=== PATIENT | female | born 1960 | race Caucasian/White ===

== ENCOUNTER 2020-04-25 10:38 | Inpatient (IN) | payer MEDICARE, MEDICAID ==
[~2020-04-25] VITALS: Ht 165.1 cm; Wt 94.2 kg
[2020-04-25] MEDS ORDERED: OLAN10TA9 PO (12:15)
[2020-04-25] MEDS ORDERED: POTA20TA4 PO (12:15)
[2020-04-25] MEDS ORDERED: TRAZ-120 PO (12:15)
[2020-04-25] MEDS ORDERED: HYDR-2155 PO (12:15)
[2020-04-25] MEDS ORDERED: ISOS30TA4 PO (12:15)
[2020-04-25] MEDS ORDERED: WARF-31 PO (12:15)
[2020-04-25] MEDS ORDERED: PANT40TA5 PO (12:15)
[2020-04-25] MEDS ORDERED: LISI-334 PO (12:15)
[2020-04-25] MEDS ORDERED: FLUO40CA2 PO (12:15)
[2020-04-25] MEDS ORDERED: ONDA-84 PO (12:15)
[2020-04-25] MEDS ORDERED: DIVA-53 PO (12:15)
[2020-04-25] MEDS ORDERED: MIRT30TA3 PO (12:15)
[2020-04-25] MEDS ORDERED: ATOR10TA60 PO (12:15)
[2020-04-25] MEDS ORDERED: FURO40TA4 PO (12:15)
[2020-04-25] MEDS ORDERED: BENZ1TAB5 PO (12:15)
[2020-04-25] MEDS ORDERED: MAGNESIUM HYDROXIDE 2,400 MG/30 ML ORAL.SUSP. PO PRN (14:30)
[2020-04-25] MEDS ORDERED: MAG HYDROX/AL HYDROX/SIMETH 30 ML ORAL.SUSP PO PRN (14:30)
[2020-04-25] MEDS ORDERED: ACETAMINOPHEN 325 MG TABLET PO PRN (14:30)
[2020-04-25] MEDS ORDERED: METHYL SALICYLATE/MENTHOL TOPICAL OINTMENT 57GM TUBE. TP PRN (14:30)
[2020-04-25 14:33] VITALS: BP 123/76
--- NOTE | 2020-04-25 14:33 | NUR ---
Admission Note with Justification for Admission to [facility] Patient admitted to [facility] for protective oversight for emergency stabilization of acute psychiatric crisis. Pt admitted from: Hospital pmc Mode of arrival: EMS Accompanied By: EMS Precipitating behaviors that initiated intake and admission: Hearing voices telling her to hurt herself or runaway, decrease appetite, thoughts of hurting herself. irritable, agitated. Description of failure of out patient attempts at stabilization in previous setting list behavior and medication trials: evaluated by Yovana Behaviors and assessment findings upon admission: Plan: Admit for protective oversight for adjustment and stabilization of medications, behaviors and mood. Intense treatment regimen including groups, medication adjustments, therapy, consistent regimen for ADL's, self care, and sleep hygiene. Daily monitoring by Inpatient staff, Psychiatry, and Medical Physician. Addendum: 04/25/20 at 1440 by AGA BARKLEY RN Behaviors and assessment findings upon admission: Patient doesn't have any current SI thoughts. And is calm and cooperative.
[2020-04-25] MEDS ORDERED: ONDANSETRON ODT 4 MG TAB.RAPDIS PO PRN (15:45)
[2020-04-25] MEDS ORDERED: WARFARIN 5 MG TABLET. PO SCH (16:00)
[2020-04-25 16:09] LABS: BASO % 0 % (0-3); EOS # 0.1 x10^3/uL (0.0-0.7); EOS % 2 % (0-3); HEMATOCRIT 42.9 % (36.0-47.0); HEMOGLOBIN 14.4 g/dL (12.0-15.5); LYMPH # 1.1 x10^3/uL (1.0-4.8); LYMPH % 22 % (24-48); MEAN CORPUSCULAR HEMOGLOBIN 29 pg (25-35); MEAN CORPUSCULAR HGB CONC 34 g/dL (31-37); MEAN CORPUSCULAR VOLUME 86 fL (79-100); MONO # 0.4 x10^3/uL (0.0-1.1); MONO % 8 % (0-9); NEUT # 3.3 x10^3uL (1.8-7.7); NEUT % 68 % (31-73); PLATELET COUNT 145 x10^3/uL (140-400); RED BLOOD COUNT 5.01 x10^6/uL (3.50-5.40); RED CELL DISTRIBUTION WIDTH 14.9 % (11.5-14.5); WHITE BLOOD COUNT 4.9 x10^3/uL (4.0-11.0)
[2020-04-25 16:23] LABS: ALBUMIN 3.4 g/dL (3.4-5.0); ALBUMIN/GLOBULIN RATIO 0.9 (1.0-1.7); CALCIUM 8.4 mg/dL (8.5-10.1); CREATININE 0.8 mg/dL (0.6-1.0); GFR 73.4; POTASSIUM 3.7 mmol/L (3.5-5.1); TOTAL BILIRUBIN 0.3 mg/dL (0.2-1.0); TOTAL PROTEIN 7.1 g/dL (6.4-8.2)
[2020-04-25] MEDS: PANTOPRAZOLE 40 MG TABLET. PO SCH (17:22)
--- NOTE | 2020-04-25 19:34 | HP ---
ADMIT DATE: 04/25/2020 PSYCHIATRIC ADMISSION HISTORY AND EVALUATION This note covers elements not covered in my initial note of 04/25/2020. IDENTIFYING DATA: The patient is a 59-year-old female referred to us from [facility] where she was admitted from home on account of having an acute exacerbation of her schizoaffective disorder, bipolar type. Reportedly, she was hearing voices telling her to hurt herself or run away. She had decreased appetite, thoughts of suicide, irritable, agitated. She had failed outpatient psychiatric interventions at [facility] by Dr. Jae Mora. The patient's behaviors were deemed dangerous and failed outpatient psychiatric interventions resulting in this referral. CHIEF COMPLAINT: "I did best on Seroquel. I'm taking Depakote now." HISTORY OF PRESENT ILLNESS: The patient has a history of schizoaffective disorder, bipolar type versus bipolar disorder, mixed with psychotic features. She has been increasingly labile in her mood recently, anxious, restless, paranoid with suicidal ideation. No active homicidal ideation. PAST PSYCHIATRIC HISTORY: As above. MEDICAL HISTORY: Positive for status post CVA in 03/2019, hypertension, hyperlipidemia, COPD, atrial fibrillation, sick sinus syndrome, coronary artery disease, cardiac stent, pacemaker in place, renal disease, AL in 1996, history of recent fall 04/21/2020. DIET: Regular, cardiac. Ambulates independently, uses cane. UA is negative. CODE STATUS: Full code. No ventilator. CURRENT PSYCHOTROPICS: Cogentin 1 mg b.i.d., Depakote 500 mg b.i.d., trazodone 50 mg at bedtime, Prozac 40 mg a day, Remeron 30 mg at bedtime, Zyprexa 15 mg at bedtime. FAMILY HISTORY: Noncontributory. SOCIAL HISTORY: The patient lives at home with her . No alcohol or drug abuse, physical, sexual or elder abuse history is noted. Not known to be a perpetrator. REACTION TO HOSPITALIZATION: The patient accepting of it. REVIEW OF SYSTEMS: No CV, , pulmonary, eye system symptoms on review. MENTAL STATUS EXAMINATION: The patient is oriented to herself and situation. Speech is coherent, abstraction fair, computation impaired, language function intact, attention span short. Mood and affect somewhat labile. No active suicidal or homicidal ideation. Attention span short. Language function intact. Insight fair. IMPRESSION: Schizoaffective disorder, bipolar type, mixed with psychotic features; anxiety disorder, unspecified. Rest as above. PLAN: Admit to Geropsychiatry Unit at [facility]. I will see the patient daily individually from a psychiatric standpoint, medical followup per Dr. Tucker. Continue the patient on her current psychotropics, observe baseline, get past records from [facility], then make adjustments as clinically indicated. ESTIMATED LENGTH OF STAY: 10-12 days. DISPOSITION: Plans probably back home with outpatient treatment at [facility]. MAN Pito BRYANT MD DR: ALON/alfredo JOB#: [id number] / [id number]
[2020-04-25] MEDS ORDERED: OLANZapine 7.5 MG TABLET PO SCH (21:00)
[2020-04-25] MEDS: MIRTAZAPINE 30 MG TABLET PO SCH (21:00)
[2020-04-25] MEDS: traZODone 50 MG TABLET. PO SCH (21:00)
[2020-04-25] MEDS: DIVALPROEX SODIUM 250 MG TABLET.DR. PO SCH (21:00)
[2020-04-25] MEDS: ATORVASTATIN CALCIUM 10 MG TABLET. PO SCH (21:01)
[2020-04-25] MEDS: BENZTROPINE MESYLATE 1 MG TABLET PO SCH (21:01)
--- NOTE | 2020-04-25 22:42 | PDOC ---
Exam Note: Braxton Note: Please also refer to the separate dictated note~for this date of service dictated separately.~Patient seen individually. Discussed the patient with Nursing staff reviewed the chart.~Reviewed interim history and current functioning. Reviewed vital signs,~Labs/ Radiology~and current medications noted below. Continue current treatment with the changes noted in the dictated addendum note Assessment: Vital Signs/I&O: Vital Signs Date Time Temp Pulse Resp B/P (MAP) Pulse Ox O2 Delivery O2 Flow Rate FiO2 04/25/20 14:33 97.9 74 18 123/76 (92) 95 Room Air Labs: Laboratory Tests Test 04/25/20 15:53 04/25/20 18:42 White Blood Count 4.9 x10^3/uL (4.0-11.0) Red Blood Count 5.01 x10^6/uL (3.50-5.40) Hemoglobin 14.4 g/dL (12.0-15.5) Hematocrit 42.9 % (36.0-47.0) Mean Corpuscular Volume 86 fL (79-100) Mean Corpuscular Hemoglobin 29 pg (25-35) Mean Corpuscular Hemoglobin Concent 34 g/dL (31-37) Red Cell Distribution Width 14.9 % (11.5-14.5) H Platelet Count 145 x10^3/uL (140-400) Neutrophils (%) (Auto) 68 % (31-73) Lymphocytes (%) (Auto) 22 % (24-48) L Monocytes (%) (Auto) 8 % (0-9) Eosinophils (%) (Auto) 2 % (0-3) Basophils (%) (Auto) 0 % (0-3) Neutrophils # (Auto) 3.3 x10^3uL (1.8-7.7) Lymphocytes # (Auto) 1.1 x10^3/uL (1.0-4.8) Monocytes # (Auto) 0.4 x10^3/uL (0.0-1.1) Eosinophils # (Auto) 0.1 x10^3/uL (0.0-0.7) Basophils # (Auto) 0.0 x10^3/uL (0.0-0.2) Sodium Level 143 mmol/L (136-145) Potassium Level 3.7 mmol/L (3.5-5.1) Chloride Level 107 mmol/L (98-107) Carbon Dioxide Level 29 mmol/L (21-32) Anion Gap 7 (6-14) Blood Urea Nitrogen 13 mg/dL (7-20) Creatinine 0.8 mg/dL (0.6-1.0) Estimated GFR (Cockcroft-Gault) 73.4 BUN/Creatinine Ratio 16 (6-20) Glucose Level 123 mg/dL (70-99) H Calcium Level 8.4 mg/dL (8.5-10.1) L Total Bilirubin 0.3 mg/dL (0.2-1.0) Aspartate Amino Transferase (AST) 15 U/L (15-37) Alanine Aminotransferase (ALT) 20 U/L (14-59) Alkaline Phosphatase 77 U/L (46-116) Total Protein 7.1 g/dL (6.4-8.2) Albumin 3.4 g/dL (3.4-5.0) Albumin/Globulin Ratio 0.9 (1.0-1.7) L Prothrombin Time 25.2 SEC (9.4-11.4) H Prothrombin Time INR 2.4 (0.9-1.1) H Current Medications: Meds: Current Medications Medications (Trade) Dose Ordered Sig/Orville Route PRN Reason Start Time Stop Time Status Last Admin Dose Admin Atorvastatin Calcium (Lipitor) 10 mg QHS PO 04/25/20 21:00 04/25/20 21:01 Pantoprazole Sodium (Protonix) 40 mg BIDBFRMEAL PO 04/25/20 16:30 04/25/20 17:22 Warfarin Sodium (Coumadin) 5 mg DAILY16 PO 04/25/20 16:00 04/25/20 17:23 Benztropine Mesylate (Cogentin) 1 mg BID PO 04/25/20 21:00 04/25/20 21:01 Mirtazapine (Remeron) 30 mg QHS PO 04/25/20 21:00 04/25/20 21:00 Olanzapine (ZyPREXA) 15 mg QHS PO 04/25/20 21:00 04/25/20 21:01 Trazodone HCl (Desyrel) 50 mg QHS PO 04/25/20 21:00 04/25/20 21:00 Divalproex Sodium (Depakote) 500 mg BID PO 04/25/20 21:00 04/25/20 21:00 I have reviewed the current psychotropics carefully including drug interactions. Risk benefit ratio favors no change other than as noted in my dictated progress note. Diagnosis: Problems: (1) Schizoaffective disorder, bipolar type (2) Bipolar disorder with psychotic features (3) Anxiety disorder, unspecified CONSTANCE BRYANT MD Apr 25, 2020 22:42
[2020-04-25] MEDS: HYDROcodone/APAP 5/325MG 1 TAB TABLET PO PRN (23:14)
--- NOTE | 2020-04-26 00:14 | NUR ---
Nursing Note Pt pleasant calm and cooperative. Complains that she cannot sleep, lortab given with no response.
[2020-04-26 06:34] VITALS: BP 108/66
[2020-04-26] MEDS: LISINOPRIL 20 MG TABLET PO SCH (09:00)
[2020-04-26] MEDS: DIVALPROEX SODIUM 250 MG TABLET.DR. PO SCH ×2 (10:01→20:54)
[2020-04-26] MEDS: POTASSIUM CHLORIDE 20 MEQ TABLET.ER. PO SCH (10:01)
[2020-04-26] MEDS: BENZTROPINE MESYLATE 1 MG TABLET PO SCH ×2 (10:01→20:54)
[2020-04-26] MEDS: ISOSORBIDE MONONITRATE ER 30 MG TAB.ER.24H PO SCH (10:01)
[2020-04-26] MEDS: PANTOPRAZOLE 40 MG TABLET. PO SCH ×2 (10:01→17:08)
[2020-04-26] MEDS: FLUoxetine HCL 20 MG CAPSULE PO SCH (10:02)
[2020-04-26] MEDS: FUROSEMIDE 40 MG TABLET PO SCH (10:02)
[2020-04-26] MEDS: HYDROcodone/APAP 5/325MG 1 TAB TABLET PO PRN (11:11)
[2020-04-26 13:12] LABS: VAL ACID 73 mcg/mL (50-100)
[2020-04-26 13:21] LABS: THYROID STIM HORMONE (TSH) 1.992 uIU/mL (0.358-3.740)
--- NOTE | 2020-04-26 14:02 | NUR ---
Pharmacy Warfarin Dosing Note S:Pharmacy consulted to assist with anticoagulation therapy started with target INR: 2 -3 O:HEIDI MCCANN is a 59 year old F with Atrial Fibrillation LABS: Last INR: 3 Last HGB: 14.4 Last HCT: 42.9 Last PLT: 145 Last dose of 5 mg given on 04/25/20 at 1600 Previous Regimen: Vitamin K given: Drug Interaction Changes: Ongoing Drug Interactions: A:INR Within desired Range. Target Range for this patient is: 2 -3 P: Warfarin dose: Hold Today at 1600 Bridge Therapy: None Next INR due 04/27/20 @ 0600 Pharmacy anticoagulation service will continue to follow. STUART AGUDELO [facility], 04/26/20 1449
--- NOTE | 2020-04-26 15:01 | NUR ---
Nursing note: Pt has been calm and cooperative this shift. She c/o pain in her back 07/15. PRN lortab administered at that time. She denies SI, as well as seeing and hearing things, although she did mention she had some hallucinations last night. She is currently sitting quietly in the day room. Will continue to monitor.
--- NOTE | 2020-04-26 16:06 | NUR ---
JESSICA contacted pt , Abhijit, to get some background information. Abhijit reports that he is currently driving through p[place] hour traffic in [place] and would prefer not to talk on the phone. JESSICA will try back at a later time.
--- NOTE | 2020-04-26 16:11 | NUR ---
Call placed to [employer], spoke to Evelia Bourgeois's [employer] member ID number is [id number]. Pending authorization number is [id number]. A [employer] utilization management telemarketing sales representative will contact JESSICA Calderon to complete the remainder of the live review. Call reference number is [id number].
[2020-04-26 16:15] VITALS: BP 114/77
--- NOTE | 2020-04-26 16:31 | NUR ---
JESSICA received a call from Oneyda, commissary representative from [facility] who wanted to complete pt review. JESSICA gave clinicals as to why pt was admitted, updates on pt medications and went over the H/P completed by Dr. Mead. Pt is authorized from her day of admit 04/25/2020 until 04/29/2020. JESSICA is to contact HANS David at to complete the concurrent review and with the authorization number of [id number].
[2020-04-26] MEDS ORDERED: CHOLECALCIFEROL (VITAMIN D3) 50,000 UNIT CAPSULE PO SCH (18:00)
[2020-04-26 19:07] LABS: THYROXINE 7.5 ug/dL (4.5-12.0)
[2020-04-26] MEDS ORDERED: traZODone 50 MG TABLET. PO PRN (19:45)
--- NOTE | 2020-04-26 20:39 | CONS ---
DATE OF CONSULTATION: 04/26/2020 REASON FOR CONSULTATION: Medical management. HISTORY OF PRESENT ILLNESS: The patient is a 59-year-old female patient who was referred from [facility] where she was admitted from home on account of an acute exacerbation of her schizoaffective disorder, bipolar type. She reportedly has been hearing voices telling her to hurt herself or runaway. She has also had decreased appetite, thoughts of suicide, irritable, agitated. She apparently has failed outpatient psychiatric intervention at [facility] and therefore, she was referred to this unit for inpatient psychiatric stabilization. When I saw her this afternoon, she basically denied any chest pain or shortness of breath or any other complaint except the fact that she is hearing voices that are urging her to hurt herself, not anybody else. PAST MEDICAL HISTORY: Significant for cerebrovascular accident, hypertension, hyperlipidemia, chronic obstructive pulmonary disease, atrial fibrillation, sick sinus syndrome, coronary artery disease, cardiac stent, pacemaker in place, chronic kidney disease and myocardial infarction in 1996, history of recent fall on 04/21/2020. PAST SURGICAL HISTORY: Significant for aortic valve replacement with prosthetic valve. She also has coronary artery disease, status post stent deployment and permanent pacemaker as well as total abdominal hysterectomy. ALLERGIES: SHE IS ALLERGIC TO IODINATED CONTRAST MEDIA, PENICILLIN, SULFA, CODEINE, DIPHENHYDRAMINE, AND LATEX. MEDICATIONS: She is currently on risperidone 1 mg at bedtime, fluoxetine 40 mg once a day, potassium chloride 20 mEq once a day, lisinopril 20 mg once a day, isosorbide mononitrate 30 mg daily, furosemide 40 mg daily, divalproex sodium 500 mg twice a day, trazodone 50 mg at bedtime, mirtazapine 30 mg at bedtime, benztropine 1 mg p.o. b.i.d., atorvastatin 10 mg at bedtime. She is on Coumadin as per pharmacy adjustment, Protonix 40 mg once a day, ondansetron 4 mg every 6 hours, hydrocodone/APAP 5/325 one tablet every 6 hours, milk of magnesia 30 mL p.o. daily p.r.n. for constipation, Mylanta plus 15 mL after meals and as needed and acetaminophen 650 mg every 6 hours. FAMILY HISTORY: Noncontributory. SOCIAL HISTORY: She is and lives at home with her . She does not smoke, drink alcohol or use any recreational drugs. She apparently used to work for [employer]. PHYSICAL EXAMINATION: GENERAL: When I saw her this afternoon, she looked well and was clearly in no apparent respiratory distress. No pallor, jaundice, cyanosis or thyromegaly. No jugular venous distension. No lower limb edema. VITAL SIGNS: Her heart rate was 72, blood pressure 114/77, temperature was 97.6, respiratory rate was 16, and oxygen saturation was 93. HEAD, EYES, EARS, NOSE AND THROAT: Showed normocephalic, atraumatic. NECK: Supple. CARDIAC: Normal first and second heart sounds. No gallop or murmur. CHEST: Clear to auscultation. No crepitation or rhonchi. ABDOMEN: Distended, soft, nontender. NEUROLOGIC: She is definitely awake, alert, responding appropriately. All cranial nerves intact. EXTREMITIES: She moves extremities without difficulty. She ambulates with a walker. LABORATORY DATA: Showed a white cell count 4900, hemoglobin 14, hematocrit 42, MCV 86 and platelet count of 145,000. Serum sodium was 143, potassium 3.7, chloride 107, bicarbonate 29, anion gap of 7, BUN 13, creatinine 0.8, estimated GFR was 73 mL per minute. Her glucose was 153, calcium was 8.4. Serum iron, TIBC and iron saturation are all consistent with iron deficiency anemia. Her total bilirubin, AST, ALT, alkaline phosphatase were normal. Total protein 7.1, albumin 3.4. Her serum triglycerides were 221, total cholesterol 161, LDL was 78, VLDL was 44, and HDL was 39, the ratio was 4. Vitamin B12 was 579 pg/mL, 25-hydroxyvitamin D was low at 29 and TSH was 1.992. Her prothrombin time was 13.9 and INR of 3, which is well within therapeutic range for prosthetic aortic valve. Her valproic acid also is 73 mcg/mL, which is well within therapeutic range. Her treponema pallidum antibodies nonreactive. IMPRESSION: In summary, this is a 59-year-old female patient who was admitted here on account of acute exacerbation of her schizophrenic disorder, bipolar type. She apparently has been hearing voices telling her to hurt herself or runaway with poor appetite and suicidal thoughts. She is also relative been markedly agitated and was admitted for inpatient psychiatric stabilization. Medically, she all in all seems to be stable. Her vital signs are normal. Her lab work is well within therapeutic range. The only abnormality is vitamin D is low. Her PT/INR is within therapeutic range. PLAN: My plan is to replenish her vitamin D with ergocalciferol 50,000 units once a week. Otherwise, she seemed to be medically stable. Thank you, Dr. Mead for allowing me to participate in the care of this patient. EMILY BOOKER MD DR: FAITH/alfredo JOB#: [id number] / [id number]
[2020-04-26] MEDS: MIRTAZAPINE 30 MG TABLET PO SCH (20:54)
[2020-04-26] MEDS: traZODone 50 MG TABLET. PO SCH (20:55)
[2020-04-26] MEDS: risperiDONE 1 MG TABLET. PO SCH (20:55)
[2020-04-26] MEDS: ATORVASTATIN CALCIUM 10 MG TABLET. PO SCH (20:55)
--- NOTE | 2020-04-26 21:00 | NUR ---
Nursing Note Pt pleasant calm and cooperative. Denies complaints states she is feeling ok glad to not be wearing a mask.
--- NOTE | 2020-04-26 22:41 | PDOC ---
Exam Note: Braxton Note: Please also refer to the separate dictated note~for this date of service dictated separately.~Patient seen individually. Discussed the patient with Nursing staff reviewed the chart.~Reviewed interim history and current functioning. Reviewed vital signs,~Labs/ Radiology~and current medications noted below. Continue current treatment with the changes noted in the dictated addendum note Assessment: Vital Signs/I&O: Vital Signs Date Time Temp Pulse Resp B/P (MAP) Pulse Ox O2 Delivery O2 Flow Rate FiO2 04/26/20 16:15 97.6 72 16 114/77 (89) 93 04/25/20 14:33 Room Air I & O 04/25/20 04/25/20 04/26/20 15:00 23:00 07:00 Intake Total 360 ml Balance 360 ml Labs: Laboratory Tests Test 04/26/20 12:38 Prothrombin Time 30.9 SEC (9.4-11.4) H Prothrombin Time INR 3.0 (0.9-1.1) H Valproic Acid Level 73 mcg/mL (50-100) Valproic Acid Last Dose Date 04/26/20 Valproic Acid Last Dose Time 1000 Current Medications: Meds: Current Medications Medications (Trade) Dose Ordered Sig/Orville Route PRN Reason Start Time Stop Time Status Last Admin Dose Admin Furosemide (Lasix) 40 mg DAILY PO 04/26/20 09:00 04/26/20 10:02 Isosorbide Mononitrate (Imdur) 30 mg DAILY PO 04/26/20 09:00 04/26/20 10:01 Potassium Chloride (Klor-Con) 20 meq DAILY PO 04/26/20 09:00 04/26/20 10:01 Fluoxetine HCl (PROzac) 40 mg DAILY PO 04/26/20 09:00 04/26/20 10:02 Risperidone (RisperDAL) 1 mg QHS PO 04/26/20 21:00 04/26/20 20:55 Vitamin D (Vitamin D3) 50,000 unit WEEKLY PO 04/26/20 18:00 04/26/20 20:54 I have reviewed the current psychotropics carefully including drug interactions. Risk benefit ratio favors no change other than as noted in my dictated progress note. Diagnosis: Problems: (1) Schizoaffective disorder, bipolar type (2) Anxiety disorder, unspecified (3) Bipolar disorder with psychotic features CONSTANCE BRYANT MD Apr 26, 2020 22:41
[2020-04-27 01:07] LABS: HEMOGLOBIN A1C 5.2 % (4.8-5.6)
[2020-04-27 06:27] VITALS: BP 141/85
[2020-04-27 07:34] LABS: ALBUMIN/GLOBULIN RATIO 0.9 (1.0-1.7); BASO % 0 % (0-3); CALCIUM 8.5 mg/dL (8.5-10.1); CREATININE 0.9 mg/dL (0.6-1.0); EOS # 0.1 x10^3/uL (0.0-0.7); EOS % 3 % (0-3); GFR 64.1; HEMATOCRIT 40.4 % (36.0-47.0); HEMOGLOBIN 13.6 g/dL (12.0-15.5); LYMPH # 1.4 x10^3/uL (1.0-4.8); LYMPH % 28 % (24-48); MEAN CORPUSCULAR HEMOGLOBIN 29 pg (25-35); MEAN CORPUSCULAR HGB CONC 34 g/dL (31-37); MEAN CORPUSCULAR VOLUME 86 fL (79-100); MONO # 0.4 x10^3/uL (0.0-1.1); MONO % 9 % (0-9); NEUT # 2.9 x10^3uL (1.8-7.7); NEUT % 60 % (31-73); PLATELET COUNT 134 x10^3/uL (140-400); POTASSIUM 3.8 mmol/L (3.5-5.1); RED BLOOD COUNT 4.71 x10^6/uL (3.50-5.40); RED CELL DISTRIBUTION WIDTH 14.5 % (11.5-14.5); TOTAL BILIRUBIN 0.3 mg/dL (0.2-1.0); TOTAL PROTEIN 6.3 g/dL (6.4-8.2); WHITE BLOOD COUNT 4.8 x10^3/uL (4.0-11.0)
[2020-04-27] MEDS: ISOSORBIDE MONONITRATE ER 30 MG TAB.ER.24H PO SCH (08:50)
[2020-04-27] MEDS: DIVALPROEX SODIUM 250 MG TABLET.DR. PO SCH ×2 (08:51→20:08)
[2020-04-27] MEDS: LISINOPRIL 20 MG TABLET PO SCH (08:51)
[2020-04-27] MEDS: POTASSIUM CHLORIDE 20 MEQ TABLET.ER. PO SCH (08:51)
[2020-04-27] MEDS: BENZTROPINE MESYLATE 1 MG TABLET PO SCH ×2 (08:51→20:08)
[2020-04-27] MEDS: PANTOPRAZOLE 40 MG TABLET. PO SCH ×2 (08:52→17:16)
[2020-04-27] MEDS: FLUoxetine HCL 20 MG CAPSULE PO SCH (08:52)
[2020-04-27] MEDS: FUROSEMIDE 40 MG TABLET PO SCH (08:52)
[2020-04-27] MEDS: HYDROcodone/APAP 5/325MG 1 TAB TABLET PO PRN (09:00)
--- NOTE | 2020-04-27 09:03 | NUR ---
Patient reports 9/10 pain during assessment. States her pain is in her back. PRN Lortab provided per order for pain. Will continue to monitor.
--- NOTE | 2020-04-27 09:59 | PDOC ---
Exam Note: Braxton Note: This note is a late entry for 04/26/2020 covers elements not covered in my initial note. Subjective: The patient was seen individually in the morning of 04/26/2020 with treatment team meeting with Carlos (social service staff), [facility] Activity Therapy staff, and Niurka IBARRA. I met with the patient in the evening along with Niurka RN, she slept 5-1/2 hours previous night. The patient is attending groups, is failure oriented. Denies suicidal ideations. Reportedly was having auditory hallucinations last evening. We will check valproic acid level. She remains quite psychotic. We have also received outpatient psychiatric records from [facility], Dr. Mora. Review of Systems: Ambulation impaired in wheelchair. No CV, , pulmonary, eye, ENT system symptoms on review. Mental Status Exam: Reasonably oriented. Speech coherent. Abstraction fair. Computation impaired. Language function intact. Attention span short. Mood and affect somewhat anxious, labile, paranoid. Laboratory Data: Reviewed. Impression: Schizoaffective disorder bipolar type, mixed with psychotic features versus bipolar disorder mixed with psychotic features. Rest unchanged. Plan: The patient remains quite psychotic. We will change the Zyprexa 15 mg h.s. to Risperdal 1 mg h.s. Check valproic acid level. Continue Cogentin for now, trazodone, Prozac 40 mg a day, Remeron 30 mg h.s. Assessment: Vital Signs/I&O: Vital Signs Date Time Temp Pulse Resp B/P (MAP) Pulse Ox O2 Delivery O2 Flow Rate FiO2 04/27/20 08:51 63 141/85 04/27/20 06:27 98.9 20 94 04/25/20 14:33 Room Air I & O 04/26/20 04/26/20 04/27/20 15:00 23:00 07:00 Intake Total 360 ml 360 ml Balance 360 ml 360 ml Labs: Laboratory Tests Test 04/26/20 12:38 04/27/20 06:47 Prothrombin Time 30.9 SEC (9.4-11.4) H 27.1 SEC (9.4-11.4) H Prothrombin Time INR 3.0 (0.9-1.1) H 2.6 (0.9-1.1) H Valproic Acid Level 73 mcg/mL (50-100) Valproic Acid Last Dose Date 04/26/20 Valproic Acid Last Dose Time 1000 White Blood Count 4.8 x10^3/uL (4.0-11.0) Red Blood Count 4.71 x10^6/uL (3.50-5.40) Hemoglobin 13.6 g/dL (12.0-15.5) Hematocrit 40.4 % (36.0-47.0) Mean Corpuscular Volume 86 fL (79-100) Mean Corpuscular Hemoglobin 29 pg (25-35) Mean Corpuscular Hemoglobin Concent 34 g/dL (31-37) Red Cell Distribution Width 14.5 % (11.5-14.5) Platelet Count 134 x10^3/uL (140-400) L Neutrophils (%) (Auto) 60 % (31-73) Lymphocytes (%) (Auto) 28 % (24-48) Monocytes (%) (Auto) 9 % (0-9) Eosinophils (%) (Auto) 3 % (0-3) Basophils (%) (Auto) 0 % (0-3) Neutrophils # (Auto) 2.9 x10^3uL (1.8-7.7) Lymphocytes # (Auto) 1.4 x10^3/uL (1.0-4.8) Monocytes # (Auto) 0.4 x10^3/uL (0.0-1.1) Eosinophils # (Auto) 0.1 x10^3/uL (0.0-0.7) Basophils # (Auto) 0.0 x10^3/uL (0.0-0.2) Sodium Level 143 mmol/L (136-145) Potassium Level 3.8 mmol/L (3.5-5.1) Chloride Level 106 mmol/L (98-107) Carbon Dioxide Level 32 mmol/L (21-32) Anion Gap 5 (6-14) L Blood Urea Nitrogen 16 mg/dL (7-20) Creatinine 0.9 mg/dL (0.6-1.0) Estimated GFR (Cockcroft-Gault) 64.1 BUN/Creatinine Ratio 18 (6-20) Glucose Level 108 mg/dL (70-99) H Calcium Level 8.5 mg/dL (8.5-10.1) Total Bilirubin 0.3 mg/dL (0.2-1.0) Aspartate Amino Transferase (AST) 15 U/L (15-37) Alanine Aminotransferase (ALT) 19 U/L (14-59) Alkaline Phosphatase 64 U/L (46-116) Total Protein 6.3 g/dL (6.4-8.2) L Albumin 3.0 g/dL (3.4-5.0) L Albumin/Globulin Ratio 0.9 (1.0-1.7) L Current Medications: Meds: Current Medications Medications (Trade) Dose Ordered Sig/Orville Route PRN Reason Start Time Stop Time Status Last Admin Dose Admin Risperidone (RisperDAL) 1 mg QHS PO 04/26/20 21:00 04/26/20 20:55 Vitamin D (Vitamin D3) 50,000 unit WEEKLY PO 04/26/20 18:00 04/26/20 20:54 I have reviewed the current psychotropics carefully including drug interactions. Risk benefit ratio favors no change other than as noted in my dictated progress note. Diagnosis: Problems: (1) Schizoaffective disorder, bipolar type (2) Anxiety disorder, unspecified (3) Bipolar disorder with psychotic features CONSTANCE BRYANT MD Apr 27, 2020 09:59
--- NOTE | 2020-04-27 11:55 | NUR ---
ACTIVITY THERAPY ASSESSMENT Completed based on observation and interview. Pt. was working on an arts and [employer] project with TELETYPE CLERK, alone, during an activity. She was agreeable to answer assessment questions and quick to share leisure interest/ hobbies: flower garden, crocheting an nepalese, coloring, reading, some TV, being outdoors. She talked about her children and grandchildren. Her comments about her seems to come with some negative connotation. She mentioned this hospital stay was sort of a break from him because they constantly spend time together. She thought her was trying to "get rid of" her. She gives the impression they are not getting along. Pt. reported having an 8/10 level of stress and anxiety (0-low, 10-high) and says she reads when she is stressed and that really helps her escape any bad thoughts. She told TELETYPE CLERK she was here for "depression, not wanting to live" anymore but reported she was feeling better at this time. Pt. participates in groups, patient with others who can be disruptive and intrusive. She questions why she can't wear her own clothes. Initial goal aimed to maintain engagement and increase socialization: Pt. will participate in all Activity Therapy groups that are offered.
--- NOTE | 2020-04-27 12:20 | NUR ---
Patient is pleasant and calm at this time. She asked multiple times this morning if she could call her . Patient stated she is worried that her will forget to water the garden villeda and hanging planters. Patient compliant with medication taken floated in applesauce. She denied hearing voices when asked by this nurse. Addendum: 04/27/20 at 1336 by PERRY BOATENG RN Patient called after lunch. When asked she stated that they had a nice visit.
--- NOTE | 2020-04-27 13:33 | NUR ---
Pharmacy Warfarin Dosing Note S:Pharmacy consulted to assist with anticoagulation therapy started with target INR: 2 -3 O:HEIDI MCCANN is a 59 year old F with Atrial Fibrillation LABS: Last INR: 2.6 Last HGB: 13.6 Last HCT: 40.4 Last PLT: 134 Last dose of Hold given on 04/26/20 at 1600 Previous Regimen: Vitamin K given: Drug Interaction Changes: Same Interacting Drug Ongoing Drug Interactions: A:INR Within desired Range. Target Range for this patient is: 2 -3 P: Warfarin dose: 5 mg Today at 1600 Bridge Therapy: None Next INR due 04/28/20 @ 0600 Pharmacy anticoagulation service will continue to follow. STUART AGUDELO [facility], 04/27/20 [id number]
[2020-04-27] MEDS ORDERED: WARFARIN 5 MG TABLET. PO ONE (16:00)
[2020-04-27 16:02] VITALS: BP 116/76
[2020-04-27] MEDS: risperiDONE 1 MG TABLET. PO SCH (20:08)
[2020-04-27] MEDS: traZODone 50 MG TABLET. PO SCH (20:08)
[2020-04-27] MEDS: ATORVASTATIN CALCIUM 10 MG TABLET. PO SCH (20:08)
[2020-04-27] MEDS: MIRTAZAPINE 30 MG TABLET PO SCH (20:08)
--- NOTE | 2020-04-27 22:26 | PDOC ---
Exam Note: Braxton Note: Please also refer to the separate dictated note~for this date of service dictated separately.~Patient seen individually. Discussed the patient with Nursing staff reviewed the chart.~Reviewed interim history and current functioning. Reviewed vital signs,~Labs/ Radiology~and current medications noted below. Continue current treatment with the changes noted in the dictated addendum note Assessment: Vital Signs/I&O: Vital Signs Date Time Temp Pulse Resp B/P (MAP) Pulse Ox O2 Delivery O2 Flow Rate FiO2 04/27/20 16:02 97.4 81 17 116/76 (89) 94 Room Air I & O 04/26/20 04/26/20 04/27/20 15:00 23:00 07:00 Intake Total 360 ml 360 ml Balance 360 ml 360 ml Labs: Laboratory Tests Test 04/27/20 06:47 White Blood Count 4.8 x10^3/uL (4.0-11.0) Red Blood Count 4.71 x10^6/uL (3.50-5.40) Hemoglobin 13.6 g/dL (12.0-15.5) Hematocrit 40.4 % (36.0-47.0) Mean Corpuscular Volume 86 fL (79-100) Mean Corpuscular Hemoglobin 29 pg (25-35) Mean Corpuscular Hemoglobin Concent 34 g/dL (31-37) Red Cell Distribution Width 14.5 % (11.5-14.5) Platelet Count 134 x10^3/uL (140-400) L Neutrophils (%) (Auto) 60 % (31-73) Lymphocytes (%) (Auto) 28 % (24-48) Monocytes (%) (Auto) 9 % (0-9) Eosinophils (%) (Auto) 3 % (0-3) Basophils (%) (Auto) 0 % (0-3) Neutrophils # (Auto) 2.9 x10^3uL (1.8-7.7) Lymphocytes # (Auto) 1.4 x10^3/uL (1.0-4.8) Monocytes # (Auto) 0.4 x10^3/uL (0.0-1.1) Eosinophils # (Auto) 0.1 x10^3/uL (0.0-0.7) Basophils # (Auto) 0.0 x10^3/uL (0.0-0.2) Prothrombin Time 27.1 SEC (9.4-11.4) H Prothrombin Time INR 2.6 (0.9-1.1) H Sodium Level 143 mmol/L (136-145) Potassium Level 3.8 mmol/L (3.5-5.1) Chloride Level 106 mmol/L (98-107) Carbon Dioxide Level 32 mmol/L (21-32) Anion Gap 5 (6-14) L Blood Urea Nitrogen 16 mg/dL (7-20) Creatinine 0.9 mg/dL (0.6-1.0) Estimated GFR (Cockcroft-Gault) 64.1 BUN/Creatinine Ratio 18 (6-20) Glucose Level 108 mg/dL (70-99) H Calcium Level 8.5 mg/dL (8.5-10.1) Total Bilirubin 0.3 mg/dL (0.2-1.0) Aspartate Amino Transferase (AST) 15 U/L (15-37) Alanine Aminotransferase (ALT) 19 U/L (14-59) Alkaline Phosphatase 64 U/L (46-116) Total Protein 6.3 g/dL (6.4-8.2) L Albumin 3.0 g/dL (3.4-5.0) L Albumin/Globulin Ratio 0.9 (1.0-1.7) L Current Medications: Meds: Current Medications Medications (Trade) Dose Ordered Sig/Orville Route PRN Reason Start Time Stop Time Status Last Admin Dose Admin Warfarin Sodium (Coumadin) 5 mg 1X WARF ONCE PO 04/27/20 16:00 04/27/20 16:01 DC 04/27/20 17:17 I have reviewed the current psychotropics carefully including drug interactions. Risk benefit ratio favors no change other than as noted in my dictated progress note. Diagnosis: Problems: (1) Schizoaffective disorder, bipolar type (2) Anxiety disorder, unspecified (3) Bipolar disorder with psychotic features CONSTANCE BRYANT MD Apr 27, 2020 22:26
--- NOTE | 2020-04-27 23:42 | NUR ---
Nursing Note Pt pleasant and cooperative denies complaints. Up in day room visiting with peers.
[2020-04-28 05:35] VITALS: BP 126/76
[2020-04-28] MEDS: DIVALPROEX SODIUM 250 MG TABLET.DR. PO SCH ×2 (08:44→21:22)
[2020-04-28] MEDS: FLUoxetine HCL 20 MG CAPSULE PO SCH (08:44)
[2020-04-28] MEDS: POTASSIUM CHLORIDE 20 MEQ TABLET.ER. PO SCH (08:45)
[2020-04-28] MEDS: LISINOPRIL 20 MG TABLET PO SCH (08:45)
[2020-04-28] MEDS: BENZTROPINE MESYLATE 1 MG TABLET PO SCH ×2 (08:45→21:22)
[2020-04-28] MEDS: ISOSORBIDE MONONITRATE ER 30 MG TAB.ER.24H PO SCH (08:45)
[2020-04-28] MEDS: PANTOPRAZOLE 40 MG TABLET. PO SCH ×2 (08:46→17:39)
[2020-04-28] MEDS: FUROSEMIDE 40 MG TABLET PO SCH (08:46)
[2020-04-28] MEDS: HYDROcodone/APAP 5/325MG 1 TAB TABLET PO PRN ×2 (08:52→21:32)
--- NOTE | 2020-04-28 11:22 | NUR ---
Patient med compliant, calm and pleasant. She has been spending her time in the day room. Patient requested a book to read and is now reading in the day room. Patient denied auditory hallucinations when asked. Patient reported pain at 0845 and was provided PRN Lortab per order. She has been eating well and denies wanting to hurt herself when asked.
--- NOTE | 2020-04-28 13:50 | NUR ---
Patients states that she is getting some irritation in her underarm area from our roll on deodorant. Patient stated she brought her own "gel" type. Will provide patient with her deodorant. Addendum: 04/29/20 at 1005 by PERRY BOATENG RN Patient has chafing and irritation from hospital briefs. Patient can wear her own underwear, they have been labeled lidyaith her name, recorded on belonging sheet and placed in her closet
--- NOTE | 2020-04-28 14:41 | NUR ---
Pharmacy Warfarin Dosing Note S:Pharmacy consulted to assist with anticoagulation therapy started 04/25/20 with target INR: 2 -3 O:HEIDI MCCANN is a 59 year old F with Atrial Fibrillation LABS: Last INR: 1.9 Last HGB: 13.6 Last HCT: 40.4 Last PLT: 134 Last dose of 5 mg given on 04/27/20 at 1600 Previous Regimen: Vitamin K given: Drug Interaction Changes: Same Interacting Drug Ongoing Drug Interactions: A:INR below desired Range. Target Range for this patient is: 2 -3 P: Warfarin dose: 5 mg Today at 1600 Bridge Therapy: None Next INR due 04/29/20 Pharmacy anticoagulation service will continue to follow. ALTHEA YOON, 04/28/20 [id number]
[2020-04-28] MEDS ORDERED: WARFARIN 5 MG TABLET. PO ONE (16:00)
[2020-04-28 16:03] VITALS: BP 124/80
[2020-04-28] MEDS: risperiDONE 1 MG TABLET. PO SCH (21:22)
[2020-04-28] MEDS: ATORVASTATIN CALCIUM 10 MG TABLET. PO SCH (21:22)
[2020-04-28] MEDS: traZODone 50 MG TABLET. PO SCH (21:23)
[2020-04-28] MEDS: MIRTAZAPINE 30 MG TABLET PO SCH (21:23)
--- NOTE | 2020-04-28 22:28 | PDOC ---
Exam Note: Braxton Note: Please also refer to the separate dictated note~for this date of service dictated separately.~Patient seen individually. Discussed the patient with Nursing staff reviewed the chart.~Reviewed interim history and current functioning. Reviewed vital signs,~Labs/ Radiology~and current medications noted below. Continue current treatment with the changes noted in the dictated addendum note Assessment: Vital Signs/I&O: Vital Signs Date Time Temp Pulse Resp B/P (MAP) Pulse Ox O2 Delivery O2 Flow Rate FiO2 04/28/20 21:32 20 Room Air 04/28/20 16:03 98.3 72 124/80 (95) 98 I & O 04/27/20 04/27/20 04/28/20 15:00 23:00 07:00 Intake Total 480 ml 600 ml Balance 480 ml 600 ml Labs: Laboratory Tests Test 04/28/20 06:15 Prothrombin Time 19.6 SEC (9.4-11.4) H Prothrombin Time INR 1.9 (0.9-1.1) H Current Medications: Meds: Current Medications Medications (Trade) Dose Ordered Sig/Orville Route PRN Reason Start Time Stop Time Status Last Admin Dose Admin Warfarin Sodium (Coumadin) 5 mg 1X WARF ONCE PO 04/28/20 16:00 04/28/20 16:01 DC 04/28/20 17:39 I have reviewed the current psychotropics carefully including drug interactions. Risk benefit ratio favors no change other than as noted in my dictated progress note. Diagnosis: Problems: (1) Schizoaffective disorder, bipolar type (2) Anxiety disorder, unspecified (3) Bipolar disorder with psychotic features CONSTANCE BRYANT MD Apr 28, 2020 22:28
--- NOTE | 2020-04-29 03:10 | NUR ---
Nursing Note The patient was located in the day room and hallway for her assessment and medication pass. The patient requested PRN lortab @2132 for back pain. The patient was pleasant during interactions with this nurse. The patient is currently sleeping in her room.
[2020-04-29 06:43] VITALS: BP 159/92
[2020-04-29] MEDS: DIVALPROEX SODIUM 250 MG TABLET.DR. PO SCH ×2 (08:12→20:39)
[2020-04-29] MEDS: FLUoxetine HCL 20 MG CAPSULE PO SCH (08:12)
[2020-04-29] MEDS: BENZTROPINE MESYLATE 1 MG TABLET PO SCH ×2 (08:13→20:40)
[2020-04-29] MEDS: PANTOPRAZOLE 40 MG TABLET. PO SCH ×2 (08:13→16:04)
[2020-04-29] MEDS: FUROSEMIDE 40 MG TABLET PO SCH (08:13)
[2020-04-29] MEDS: ISOSORBIDE MONONITRATE ER 30 MG TAB.ER.24H PO SCH (08:13)
[2020-04-29] MEDS: LISINOPRIL 20 MG TABLET PO SCH (08:14)
[2020-04-29] MEDS: POTASSIUM CHLORIDE 20 MEQ TABLET.ER. PO SCH (08:14)
[2020-04-29] MEDS: HYDROcodone/APAP 5/325MG 1 TAB TABLET PO PRN ×2 (08:17→20:39)
--- NOTE | 2020-04-29 08:19 | NUR ---
Patient reports pain in lower back. PRN lortab provided per order for pain.
--- NOTE | 2020-04-29 09:17 | PDOC ---
Exam Note: Braxton Note: This note is a late entry for 04/27/2020 covers elements not covered in my initial note. Subjective: The patient was seen individually in the evening of 04/27/2020. Per Alejandra IBARRA, she slept 6-1/2 hours previous night. She is tolerating the Risperdal in place of Zyprexa, took Lortab for pain. No active hallucinations noted. Review of Systems: Ambulation impaired in wheelchair. No CV, , pulmonary, eye, ENT system symptoms on review. Mental Status Exam: Reasonably oriented. Speech coherent. Abstraction fair. Computation impaired. Language function intact. Attention span short. Mood and affect less anxious, labile, less paranoid. Laboratory Data: Reviewed. Impression: Schizoaffective disorder bipolar type, mixed with psychotic features versus bipolar disorder mixed with psychotic features. Rest unchanged. Plan: No change from initial note. Assessment: Vital Signs/I&O: Vital Signs Date Time Temp Pulse Resp B/P (MAP) Pulse Ox O2 Delivery O2 Flow Rate FiO2 04/29/20 08:14 62 159/92 04/29/20 06:43 97.8 20 95 04/28/20 22:32 Room Air I & O 04/28/20 04/28/20 04/29/20 15:00 23:00 07:00 Intake Total 600 ml 240 ml 240 ml Balance 600 ml 240 ml 240 ml Labs: Laboratory Tests Test 04/29/20 05:57 Prothrombin Time 22.3 SEC (9.4-11.4) H Prothrombin Time INR 2.1 (0.9-1.1) H Current Medications: Meds: Current Medications Medications (Trade) Dose Ordered Sig/Orville Route PRN Reason Start Time Stop Time Status Last Admin Dose Admin Warfarin Sodium (Coumadin) 5 mg 1X WARF ONCE PO 04/28/20 16:00 04/28/20 16:01 DC 04/28/20 17:39 I have reviewed the current psychotropics carefully including drug interactions. Risk benefit ratio favors no change other than as noted in my dictated progress note. Diagnosis: Problems: (1) Schizoaffective disorder, bipolar type (2) Anxiety disorder, unspecified (3) Bipolar disorder with psychotic features CONSTANCE BRYANT MD Apr 29, 2020 09:17
--- NOTE | 2020-04-29 10:01 | NUR ---
Patient calm and appropriate. Cooperative with staff, independent with ADLs. She denies auditory hallucinations. Patient compliant with medications and is oriented x4 with some confusion to situation.
--- NOTE | 2020-04-29 13:00 | NUR ---
JESSICA received call from Joann with [facility], to complete continued stay update. It appears that pt is calm, cooperative and for the last 3 days has denied any hallucinations to nursing staff or the psychiatrist. Pt has not had any medication changes with in the last 3 days as well. Pt Depakote is therapeutic and she appears to not need any PRN medications. At this moment, [facility] does not feel pt meets requirements to stay inpt and recommend discharge for tomorrrow; however, today will be covered. Furthermore, if pt happens to have a "bad" night and has significant behavioral changes that do require PRN medications or some form of medical intervention, JESSICA can call [facility] and see about increasing a few more days for continued stay. JESSICA will follow up with Joann in the AM and inform her of the final decision for pt stay.
--- NOTE | 2020-04-29 13:16 | NUR ---
JESSICA returned call to pt , Joe to go over how pt is doing on the unit. SW informed pt that she appears to be doing well; denying any hallucinations, SI or HI. JESSICA informed Joe that SW just completed pt insurance review at 1:00 with a [facility] employment representative and because pt is not reporting hallucinations to staff and there are no notes for the last 3 days to report any issues, the are only covering today with a discharge plan for tomorrow. Joe reports that the day before last pt mentioned talking to her father and having a delightful conversation. JESSICA explained that under [employer] guidelines, pt has been great for the last 3 days and does not meet the need to stay. JESSICA did let Joe know that if pt had a significant change in behaviors then it is possible for pt to stay. So the plan will be discharge tentatively for tomorrow; JESSICA will plan to follow up with Joe first thing.
--- NOTE | 2020-04-29 13:29 | NUR ---
Pharmacy Warfarin Dosing Note S:Pharmacy consulted to assist with anticoagulation therapy started 04/25/20 with target INR: 2 -3 O:HEIDI MCCANN is a 59 year old F with Atrial Fibrillation LABS: Last INR: 2.1 Last HGB: 13.6 Last HCT: 40.4 Last PLT: 134 Last dose of 5 mg given on 04/28/20 at 1600 Drug Interaction Changes: Same Interacting Drug A:INR Within desired Range. Target Range for this patient is: 2 -3 P: Warfarin dose: 5 mg Today at 1600 Bridge Therapy: None Next INR due 04/30 Pharmacy anticoagulation service will continue to follow. ALTHEA YOON, 04/29/20 [id number]
[2020-04-29 15:54] VITALS: BP 145/68
[2020-04-29] MEDS ORDERED: WARFARIN 5 MG TABLET. PO ONE (16:00)
--- NOTE | 2020-04-29 18:29 | NUR ---
[facility] Social Work Discharge Planning Form Patient Name HEIDI JARQUIN Admit Date: 04/25/2020 DISCHARGE PLAN Discharge Destination: Home with and community services Care Assessment: N/A Level II Assessment: N/A Transportation: Pt to pick pt up; will call in the AM with a transport time. Special Instructions/Notes: Please fax discharge medication list, discharge orders and discharge summary to the fax numbers listed below. DISCHARGE TO HOME: Address: [address] [place] [address]; [address]; [place] [address] Responsible Alliance Party: Joe Jarquin, Pharmacy: [facility] Contact Information: [address] [place] [address] Psychiatrist/Mental Health Follow Up: [facility]; Dr. Mora Contact Information: [address] [place] [address] Appointment: May 10 @ 2:20 PM Primary Care Follow Up: [facility]; Dr. Barbour Contact Information: [address] [address] Appointment: May 24 @ 3:45 PM
[2020-04-29] MEDS: traZODone 50 MG TABLET. PO SCH (20:39)
[2020-04-29] MEDS: MIRTAZAPINE 30 MG TABLET PO SCH (20:39)
[2020-04-29] MEDS: risperiDONE 1 MG TABLET. PO SCH (20:39)
[2020-04-29] MEDS: ATORVASTATIN CALCIUM 10 MG TABLET. PO SCH (20:39)
--- NOTE | 2020-04-29 22:19 | PDOC ---
Exam Note: Braxton Note: Please also refer to the separate dictated note~for this date of service dictated separately.~Patient seen individually. Discussed the patient with Nursing staff reviewed the chart.~Reviewed interim history and current functioning. Reviewed vital signs,~Labs/ Radiology~and current medications noted below. Continue current treatment with the changes noted in the dictated addendum note Assessment: Vital Signs/I&O: Vital Signs Date Time Temp Pulse Resp B/P (MAP) Pulse Ox O2 Delivery O2 Flow Rate FiO2 04/29/20 20:39 18 Room Air 04/29/20 15:54 97.2 66 145/68 (93) 97 I & O 04/28/20 04/28/20 04/29/20 15:00 23:00 07:00 Intake Total 600 ml 240 ml 240 ml Balance 600 ml 240 ml 240 ml Labs: Laboratory Tests Test 04/29/20 05:57 Prothrombin Time 22.3 SEC (9.4-11.4) H Prothrombin Time INR 2.1 (0.9-1.1) H Current Medications: Meds: Current Medications Medications (Trade) Dose Ordered Sig/Orville Route PRN Reason Start Time Stop Time Status Last Admin Dose Admin Warfarin Sodium (Coumadin) 5 mg 1X WARF ONCE PO 04/29/20 16:00 04/29/20 16:01 DC 04/29/20 16:04 I have reviewed the current psychotropics carefully including drug interactions. Risk benefit ratio favors no change other than as noted in my dictated progress note. Diagnosis: Problems: (1) Schizoaffective disorder, bipolar type (2) Anxiety disorder, unspecified (3) Bipolar disorder with psychotic features CONSTANCE BRYANT MD Apr 29, 2020 22:19
--- NOTE | 2020-04-29 23:33 | NUR ---
Nursing Note The patient was located in the day room and hallway for interactions, medication pass and assessment. The patient was calm, compliant and appropriate during interactions with this nurse and took her medication whole. The patient took her medication whole. The patient is currently sleeping in her room.
--- NOTE | 2020-04-30 00:33 | NUR ---
Nursing Note The patient received PRN Lortab with her HS medication per PRN order.
[2020-04-30] MEDS ORDERED: METH28OI2 TP (00:46)
[2020-04-30] MEDS ORDERED: ACET325T9 PO (00:47)
[2020-04-30] MEDS ORDERED: TRAZ-120 PO (00:48)
[2020-04-30] MEDS ORDERED: RISP1TAB43 PO (00:50)
[2020-04-30] MEDS ORDERED: MAG30ORA2 PO (00:51)
[2020-04-30] MEDS ORDERED: MAGN400O7 PO (00:52)
[2020-04-30] MEDS ORDERED: CHOL500021 PO (00:54)
[2020-04-30] MEDS ORDERED: [UNRECOGNIZED DRUG - REMARK] PO (00:55)
[2020-04-30 06:21] VITALS: BP 147/78
[2020-04-30] MEDS: FUROSEMIDE 40 MG TABLET PO SCH (08:03)
[2020-04-30] MEDS: PANTOPRAZOLE 40 MG TABLET. PO SCH (08:03)
[2020-04-30] MEDS: FLUoxetine HCL 20 MG CAPSULE PO SCH (08:04)
[2020-04-30] MEDS: DIVALPROEX SODIUM 250 MG TABLET.DR. PO SCH (08:04)
[2020-04-30] MEDS: BENZTROPINE MESYLATE 1 MG TABLET PO SCH (08:04)
[2020-04-30] MEDS: LISINOPRIL 20 MG TABLET PO SCH (08:04)
--- NOTE | 2020-04-30 08:04 | NUR ---
Pharmacy Warfarin Dosing Note S:Pharmacy consulted to assist with anticoagulation therapy started 04/25/20 with target INR: 2 -3 O:HEIDI MCCANN is a 59 year old F with Atrial Fibrillation LABS: Last INR: 2.9 Last HGB: 13.6 Last HCT: 40.4 Last PLT: 134 Last dose of 5 mg given on 04/29/20 at 1600 Drug Interaction Changes: Same Interacting Drug A:INR Within desired Range. Target Range for this patient is: 2 -3 P: Warfarin dose: Hold Today at 1600 due to 0.8 increase in INR since yesterday. Bridge Therapy: None Next INR due per primary after discharge Pharmacy anticoagulation service will continue to follow. STUART SANCHEZ RP, 04/30/20 0804
[2020-04-30 08:05] VITALS: BP 147/78
[2020-04-30] MEDS: POTASSIUM CHLORIDE 20 MEQ TABLET.ER. PO SCH (08:05)
[2020-04-30] MEDS: ISOSORBIDE MONONITRATE ER 30 MG TAB.ER.24H PO SCH (08:05)
--- NOTE | 2020-04-30 09:52 | NUR ---
Patient is alert and oriented. Calm and cooperative, interactive with staff. Pleasant to talk with. Regis any hallucinations. Compliant with medications. Looking forward to going home today. WCTM.
--- NOTE | 2020-04-30 11:55 | NUR ---
Transition Record was faxed to follow-up provider with the following elements: Reason for admission, procedures, tests, principal diagnosis, pending studies, patient instructions, 28/05 contact information for unit, phone number to obtain pending test results, plan for follow-up care, physician follow-up, advanced directive information, and medication list with dose, duration and instructions. This information was included in the following documents: History and physical, lab results, study results, progress notes, social work planning form, DC instruction form, patient visit summary, and medication reconciliation form. Date & time record faxed: 04/30/20 0100 Record faxed to: Ness Joiner Record discussed with/ report given to: patient
--- NOTE | 2020-04-30 22:33 | PDOC ---
Exam Note: Braxton Note: Please also refer to the separate dictated note~for this date of service dictated separately.~Patient seen individually. Discussed the patient with Nursing staff reviewed the chart.~Reviewed interim history and current functioning. Reviewed vital signs,~Labs/ Radiology~and current medications noted below. Continue current treatment with the changes noted in the dictated addendum note Assessment: Vital Signs/I&O: Vital Signs Date Time Temp Pulse Resp B/P (MAP) Pulse Ox O2 Delivery O2 Flow Rate FiO2 04/30/20 08:05 60 147/78 04/30/20 06:21 98.0 18 93 Room Air I & O 04/29/20 04/29/20 04/30/20 15:00 23:00 07:00 Intake Total 840 ml 240 ml 240 ml Balance 840 ml 240 ml 240 ml Labs: Laboratory Tests Test 04/30/20 06:19 Prothrombin Time 29.9 SEC (9.4-11.4) H Prothrombin Time INR 2.9 (0.9-1.1) H Current Medications: I have reviewed the current psychotropics carefully including drug interactions. Risk benefit ratio favors no change other than as noted in my dictated progress note. Diagnosis: Problems: (1) Schizoaffective disorder, bipolar type (2) Anxiety disorder, unspecified (3) Bipolar disorder with psychotic features CONSTANCE BRYANT MD Apr 30, 2020 22:33
--- NOTE | 2020-05-01 07:24 | PDOC ---
Exam Note: Braxton Note: This note is a late entry for 04/28/2020 covers elements not covered in my initial note. Subjective: The patient was seen individually in the evening of 04/28/2020. Per Alejandra IBARRA, she slept 7 hours previous night. She had a telephone call with her and per nursing report this went well. She appeared less paranoid. Valproic acid level therapeutic at 73. Review of Systems: No CV, , pulmonary, eye, ENT system symptoms on review. Mental Status Exam: Reasonably oriented. Speech coherent. Abstraction fair. Computation impaired. Language function intact. Mood and affect is improved. Laboratory Data: Reviewed. Impression: Schizoaffective disorder bipolar type, mixed with psychotic features versus bipolar disorder mixed with psychotic features. Rest unchanged. Plan: No change from initial note. Assessment: Vital Signs/I&O: Vital Signs Date Time Temp Pulse Resp B/P (MAP) Pulse Ox O2 Delivery O2 Flow Rate FiO2 04/30/20 08:05 60 147/78 04/30/20 06:21 98.0 18 93 Room Air I & O 04/30/20 04/30/20 05/01/20 15:00 23:00 07:00 Intake Total 360 ml Balance 360 ml Current Medications: I have reviewed the current psychotropics carefully including drug interactions. Risk benefit ratio favors no change other than as noted in my dictated progress note. Diagnosis: Problems: (1) Schizoaffective disorder, bipolar type (2) Anxiety disorder, unspecified (3) Bipolar disorder with psychotic features CONSTANCE BRYANT MD May 01, 2020 07:24
--- NOTE | 2020-05-01 07:52 | PDOC ---
Exam Note: Braxton Note: This note is a late entry for 04/29/2020 covers elements not covered in my initial note. Subjective: The patient was seen individually in the evening of 04/29/2020. Per Alejandra IBARRA, she slept reasonably well. Her valproic acid level is therapeutic at 73. She was in the dayroom interacting with others during my evening rounds and I met with her individually. Review of Systems: No CV, , pulmonary, eye, ENT system symptoms on review. Mental Status Exam: Reasonably oriented. Speech coherent. Abstraction fair. Computation reasonable. Language function intact. Attention span short. Mood and affect improved. No suicidal or homicidal ideation. Laboratory Data: Reviewed. Impression: Schizoaffective disorder bipolar type, mixed with psychotic features versus bipolar disorder mixed with psychotic features. Rest unchanged. Plan: No change from initial note. I was informed by social service staff Michelle that [facility] has suggested further outpatient follow-up. We will possibly discharge her on 04/30/2020. Assessment: Vital Signs/I&O: Vital Signs Date Time Temp Pulse Resp B/P (MAP) Pulse Ox O2 Delivery O2 Flow Rate FiO2 04/30/20 08:05 60 147/78 04/30/20 06:21 98.0 18 93 Room Air I & O 04/30/20 04/30/20 05/01/20 15:00 23:00 07:00 Intake Total 360 ml Balance 360 ml Current Medications: I have reviewed the current psychotropics carefully including drug interactions. Risk benefit ratio favors no change other than as noted in my dictated progress note. Diagnosis: Problems: (1) Schizoaffective disorder, bipolar type (2) Anxiety disorder, unspecified (3) Bipolar disorder with psychotic features CONSTANCE BRYANT MD May 01, 2020 07:52
--- NOTE | 2020-05-01 22:45 | PN ---
DATE: 04/30/2020 PSYCHIATRIC PROGRESS NOTE This late entry 04/30/2020 covers elements not covered in my initial note. REASON FOR ADMISSION: Please refer to the admission history for details. Briefly, the patient is a 59-year-old female referred to us by Dr. Jae Mora, her psychiatrist at [facility] and family on account of hearing voices telling her to hurt herself or run away. She had decreased appetite, thoughts of suicide, irritable, agitated. She had failed outpatient psychiatric interventions for her schizoaffective disorder, bipolar type, mixed with psychotic features and treatment at the [facility]. She was initially referred to [facility] and then to us for psychiatric stabilization. SIGNIFICANT FINDINGS AND CLINICAL COURSE: Following admission, the patient was seen daily individually by myself from a psychiatric standpoint, medical followup with Dr. Tucker/Dr. Botello. The patient was quite psychotic, paranoid, with marked mood lability. Adjustments were made in her psychotropic. She seemed to respond to a combination of Depakote 500 mg b.i.d., trazodone 50 mg at bedtime, may repeat x 1. For insomnia, maintained on Prozac 40 mg a day, Remeron 30 mg at bedtime and Zyprexa was changed to Risperdal 1 mg at bedtime. She was maintained on benztropine 1 mg b.i.d. Gradually, mood appeared to improve. She was much less psychotic, more appropriate, interactive, pleasant. REVIEW OF SYSTEMS: Prior to discharge on 04/30/2020, no CV, , pulmonary, eye system symptoms on review. MENTAL STATUS EXAM: Reasonably oriented. Speech is coherent, abstraction fair, computation impaired, language function intact, attention span short. Mood and affect was improved. No suicidal ideation. CONDITION AT DISCHARGE: Improved. FINAL DIAGNOSES: Schizoaffective disorder, bipolar type, mixed with psychotic features versus bipolar disorder, mixed with psychotic features; anxiety disorder, unspecified; impulse control disorder, unspecified. Rest unchanged from admission. DISCHARGE MEDICATIONS: Please refer to the MRAD. DISCHARGE INSTRUCTIONS: Outpatient psychiatric and medical followup with her primary care physician and for psychiatric followup at [facility]. Valproic acid level was to be redrawn to make sure she was therapeutic and result is not in the chart at the time of this dictation, should be followed up as an outpatient. Time for discharge day management greater than 30 minutes. CONSTANCE BRYANT MD DR: ALON/alfredo JOB#: [id number] / [id number]
--- NOTE | 2020-05-03 15:51 | DS ---
DATE OF DISCHARGE: 04/30/2020 PSYCHIATRIC PROGRESS NOTE This late entry 04/30/2020 covers elements not covered in my initial note. REASON FOR ADMISSION: Please refer to the admission history for details. Briefly, the patient is a 59-year-old female referred to us by Dr. Jae Mora, her psychiatrist at [facility] [place] and family on account of hearing voices telling her to hurt herself or run away. She had decreased appetite, thoughts of suicide, irritable, agitated. She had failed outpatient psychiatric interventions for her schizoaffective disorder, bipolar type, mixed with psychotic features and treatment at the [facility]. [facility] and then to us for psychiatric stabilization. SIGNIFICANT FINDINGS AND CLINICAL COURSE: Following admission, the patient was seen daily individually by myself from a psychiatric standpoint, medical followup with Dr. Tucker/Dr. Botello. The patient was quite psychotic, paranoid, with marked mood lability. Adjustments were made in her psychotropic. She seemed to respond to a combination of Depakote 500 mg b.i.d., trazodone 50 mg at bedtime, may repeat x 1. For insomnia, maintained on Prozac 40 mg a day, Remeron 30 mg at bedtime and Zyprexa was changed to Risperdal 1 mg at bedtime. She was maintained on benztropine 1 mg b.i.d. Gradually, mood appeared to improve. She was much less psychotic, more appropriate, interactive, pleasant. REVIEW OF SYSTEMS: Prior to discharge on 04/30/2020, no CV, , pulmonary, eye system symptoms on review. MENTAL STATUS EXAM: Reasonably oriented. Speech is coherent, abstraction fair, computation impaired, language function intact, attention span short. Mood and affect was improved. No suicidal ideation. CONDITION AT DISCHARGE: Improved. FINAL DIAGNOSES: Schizoaffective disorder, bipolar type, mixed with psychotic features versus bipolar disorder, mixed with psychotic features; anxiety disorder, unspecified; impulse control disorder, unspecified. Rest unchanged from admission. DISCHARGE MEDICATIONS: Please refer to the [facility]AD. DISCHARGE INSTRUCTIONS: Outpatient psychiatric and medical followup with her primary care physician and for psychiatric followup at [facility]. Valproic acid level was to be redrawn to make sure she was therapeutic and result is not in the chart at the time of this dictation, should be followed up as an outpatient. Time for discharge day management greater than 30 minutes. CONSTANCE BRYANT MD DR: ALON/alfredo JOB#: [id number] / [id number]
== END 2020-04-30 11:57 | disposition home or self-care (01) | DRG 885 ==
LOC: GEROPSY 13:45
PROVIDERS: ADMIT Psychiatry & Neurology Psychiatry; ATTEND Psychiatry & Neurology Psychiatry
DX: F25.0 Schizoaffective disorder, bipolar type (principal); E78.5 Hyperlipidemia, unspecified; F41.9 Anxiety disorder, unspecified; I12.9 Hypertensive chronic kidney disease with stage 1 through stage 4 chronic kidney disease, or unspecified chronic kidney disease; I25.10 Atherosclerotic heart disease of native coronary artery without angina pectoris; I25.2 Old myocardial infarction; F63.9 Impulse disorder, unspecified; I48.91 Unspecified atrial fibrillation; J44.9 Chronic obstructive pulmonary disease, unspecified; N18.9 Chronic kidney disease, unspecified; Z79.899 Other long term (current) drug therapy; Z86.73 Personal history of transient ischemic attack (TIA), and cerebral infarction without residual deficits; Z90.710 Acquired absence of both cervix and uterus; Z95.0 Presence of cardiac pacemaker; Z95.2 Presence of prosthetic heart valve; Z95.5 Presence of coronary angioplasty implant and graft; Z88.5 Allergy status to narcotic agent; Z88.0 Allergy status to penicillin; Z88.8 Allergy status to other drugs, medicaments and biological substances; Z91.041 Radiographic dye allergy status; Z91.040 Latex allergy status
CPT/HCPCS: 36415; 80053; 80061; 80164; 82306; 82607; 83036; 83540; 83550; 84436; 84443; 84480; 85025; 85610; 86592

== ENCOUNTER 2020-07-02 11:47 | Emergency (ER) | payer MEDICARE, MEDICAID ==
[~2020-07-02] VITALS: Ht 165.1 cm; Wt 94.2 kg
[~2020-07-02 11:47] MED LIST: ACET325T9 PO; ATOR10TA60 PO; BENZ1TAB5 PO; CHOL500021 PO; DIVA-53 PO; FLUO40CA2 PO; FURO40TA4 PO; HYDR-2155 PO; ISOS30TA4 PO; LISI-334 PO; MAG30ORA2 PO; MAGN400O7 PO; METH28OI2 TP; MIRT30TA3 PO; OLAN10TA9 PO; ONDA-84 PO; PANT40TA5 PO; POTA20TA4 PO; RISP1TAB43 PO; TRAZ-120 PO; WARF-31 PO; [UNRECOGNIZED DRUG - REMARK] PO
--- NOTE | 2020-07-02 12:32 | PHYS DOC ---
Past History Past Medical History: Anxiety, Depression, Hypertension, Schizophrenia (CIARRA SANDOVAL DO) Past Surgical History: Cholecystectomy (CIARRA SANDOVAL DO) Alcohol Use: None (CIARRA SANDOVAL DO) General Adult EDM: Chief Complaint: PSYCH EVALUATION HPI: HPI: 59-year-old female presents with audible hallucinations telling her to hurt herself. She denies any intention of hurting herself or anyone else. She has a history of bipolar with audible hallucinations. She is also been more manic lately and not sleeping well. She is generally feeling depressed. Patient lives at home with her . She was sent here by her outpatient psychiatrist who is concerned about her. Current treatment does not appear to be working. (CIARRA SANDOVAL DO) Review of Systems: Review of Systems: Constitutional: Denies fever or chills Eyes: Denies change in visual acuity HENT: Denies nasal congestion or sore throat Respiratory: Denies cough or shortness of breath Cardiovascular: Denies chest pain or edema GI: Denies abdominal pain, nausea, vomiting, bloody stools or diarrhea : Denies dysuria Musculoskeletal: Denies back pain or joint pain Integument: Denies rash Neurologic: Denies headache, focal weakness or sensory changes Endocrine: Denies polyuria or polydipsia Lymphatic: Denies swollen glands Psychiatric: Depression, audible hallucinations (CIARRA SANDOVAL DO) Heart Score: Risk Factors: Risk Factors: DM, Current or recent (<one month) smoker, HTN, HLP, family history of CAD, obesity. Risk Scores: Score 0 - 3: 2.5% MACE over next 6 weeks - Discharge Home Score 4 - 6: 20.3% MACE over next 6 weeks - Admit for Clinical Observation Score 7 - 10: 72.7% MACE over next 6 weeks - Early Invasive Strategies (CIARRA SANDOVAL DO) Allergies: Allergies: Allergies Coded Allergies Type Severity Reaction Last Updated Verified Iodinated Contrast Media Allergy Intermediate 04/25/20 Yes Penicillins Allergy Intermediate 04/30/20 Yes Sulfa (Sulfonamide Antibiotics) Allergy Intermediate 04/30/20 Yes codeine Allergy Intermediate 04/30/20 Yes diphenhydramine Allergy Intermediate 04/30/20 Yes latex Allergy Intermediate 04/30/20 Yes (CIARRA SANDOVAL DO) Physical Exam: PE: Constitutional: Well developed, well nourished, no acute distress, non-toxic appearance. [] HENT: Normocephalic, atraumatic, bilateral external ears normal, oropharynx moist, no oral exudates, nose normal. [] Eyes: PERRLA, EOMI, conjunctiva normal, no discharge. [] Neck: Normal range of motion, no tenderness, supple, no stridor. [] Cardiovascular: Heart rate regular rhythm, systolic murmur consistent with mechanical valve [] Lungs & Thorax: Bilateral breath sounds clear to auscultation [] Abdomen: Bowel sounds normal, soft, no tenderness, no masses, no pulsatile masses. [] Skin: Warm, dry, no erythema, no rash. [] Back: No tenderness, no CVA tenderness. [] Extremities: No tenderness, no cyanosis, no clubbing, ROM intact, no edema. [] Neurologic: Alert and oriented X 3, normal motor function, normal sensory function, no focal deficits noted. [] Psychologic: Affect flat, judgement normal, mood depressed. [] (CIARRA SANDOVAL DO) Current Patient Data: Vital Signs: Vital Signs Date Time Temp Pulse Resp B/P (MAP) Pulse Ox O2 Delivery O2 Flow Rate FiO2 07/02/20 11:47 97.7 80 16 132/69 (90) 97 Room Air (CIARRA SANDOVAL DO) EKG: EKG: Sinus rhythm, rate 75, normal axis, no ST elevations or depressions, prolonged QTC [] (CIARRA SANDOVAL DO) Radiology/Procedures: Radiology/Procedures: [] (CIARRA SANDOVAL DO) Course & Med Decision Making: Course & Med Decision Making Pertinent Labs and Imaging studies reviewed. (See chart for details) The patient's labs are unremarkable. She does not have urinary tract infection. She is medically stable for psychiatric admission. Her psychiatric evaluation determined that she should be admitted to an inpatient facility. We are working on placement at this time. I am signing the patient out to Dr. Pratt to oversee her transfer. [] (CIARRA SANDOVAL DO) Course & Med Decision Making Patient seen and evaluated by prior shifts physicians Non-concerning during my shift today Nonetheless, prior work-up was performed and decision was made to transfer to inpatient psychiatry for further mental health management Patient was accepted at [facility] under the care of Dr. Wise Patient updated of this decision and agreeable, all questions and concerns addressed prior to ER departure via EMS to inpatient psych facility (RAHUL CROSS DO) Praveen Disclaimer: Praveen Disclaimer: This electronic medical record was generated, in whole or in part, using a voice recognition dictation system. (CIARRA SANDOVAL DO) Departure Departure: Impression: Primary Impression: Bipolar disorder with psychotic features Disposition: 65 XFER TO PSYCH HOSP/UNIT ([facility]) Admitting Physician: Other (Dr. Wise) (RAHUL CROSS DO) Condition: STABLE Referrals: GUI HARPER MD (PCP) Justification of Admission: Justification of Admission: Justification of Admission Dx: N/A (CIARRA SANDOVAL DO) Justification of Admission Dx: Yes (need for inpatient psych for h/o schizophrenia) (RAHUL CROSS DO) CIARRA SANDOVAL DO Jul 02, 2020 12:32 RAHUL CROSS DO Jul 03, 2020 15:42
[2020-07-02 13:01] LABS: BASO % 0 % (0-3); EOS # 0.1 x10^3/uL (0.0-0.7); EOS % 1 % (0-3); HEMOGLOBIN 14.4 g/dL (12.0-15.5); LYMPH # 1.1 x10^3/uL (1.0-4.8); LYMPH % 19 % (24-48); MEAN CORPUSCULAR HEMOGLOBIN 29 pg (25-35); MEAN CORPUSCULAR HGB CONC 34 g/dL (31-37); MEAN CORPUSCULAR VOLUME 87 fL (79-100); MONO # 0.4 x10^3/uL (0.0-1.1); MONO % 7 % (0-9); NEUT % 72 % (31-73); PLATELET COUNT 142 x10^3/uL (140-400); RED BLOOD COUNT 4.92 x10^6/uL (3.50-5.40); RED CELL DISTRIBUTION WIDTH 14.7 % (11.5-14.5); WHITE BLOOD COUNT 5.6 x10^3/uL (4.0-11.0)
[2020-07-02 13:03] LABS: CALCIUM 8.9 mg/dL (8.5-10.1); GFR 56.7; POTASSIUM 3.4 mmol/L (3.5-5.1)
[2020-07-02 13:10] LABS: ALBUMIN 3.4 g/dL (3.4-5.0); ALBUMIN/GLOBULIN RATIO 0.9 (1.0-1.7); TOTAL BILIRUBIN 0.3 mg/dL (0.2-1.0); TOTAL PROTEIN 7.3 g/dL (6.4-8.2)
[2020-07-02 13:19] LABS: BACTERIA,URINE FEW /HPF (0-FEW); BILIRUBIN,URINE NEG (NEG); CLARITY,URINE CLEAR; COLOR,URINE YELLOW; GLUCOSE,URINE NEG (NEG); NITRITE,URINE NEG (NEG); RBC,URINE 0 /HPF (0-2); SQUAMOUS EPITHELIAL CELL,UR MOD /LPF; UROBILINOGEN,URINE 0.2 mg/dL (0.2 mg/dL); WBC,URINE RARE /HPF (0-4)
--- NOTE | 2020-07-02 13:56 | EKG ---
[facility] ED [facility] [place] [id number] Test Date: 2020-07-02 Test Time: 12:18:38 Pat Name: HEIDI MCCANN Department: Room: Gender: F Integration Director: : 1960 Requested By: CIARRA SANDOVAL Order Number: [id number] Reading MD: Measurements Intervals [place] Rate: 75 P: -20 AL: 152 QRS: 19 QRSD: 86 T: 87 QT: 426 QTc: 479 Interpretive Statements SINUS RHYTHM ATRIAL PREMATURE COMPLEX(ES) T ABNORMALITY IN HIGH LATERAL LEADS PROLONGED QT ABNORMAL ECG RI6.02 No previous ECG available for comparison
[2020-07-02] MEDS ORDERED: traZODone 50 MG TABLET. PO ONE (21:15)
[2020-07-02] MEDS ORDERED: risperiDONE 1 MG TABLET. PO ONE (21:30)
[2020-07-02] MEDS ORDERED: DIVALPROEX ER 500 MG TAB.ER.24H PO ONE (21:30)
[2020-07-02] MEDS ORDERED: MIRTAZAPINE 30 MG TABLET PO ONE (21:30)
[2020-07-02] MEDS ORDERED: BENZTROPINE MESYLATE 1 MG TABLET PO ONE (21:30)
[2020-07-02] MEDS ORDERED: WARFARIN 5 MG TABLET. PO ONE (21:45)
[2020-07-02] MEDS ORDERED: OLANZapine ZYDIS 15 MG TAB.RAPDIS PO STA (21:55)
[2020-07-02] MEDS ORDERED: TOPIRAMATE 25 MG TABLET. PO ONE (22:00)
[2020-07-02] MEDS ORDERED: METOCLOPRAMIDE 10 MG TABLET PO ONE (22:00)
[2020-07-02] MEDS ORDERED: METOPROLOL TART IMMED RELEASE 25 MG TABLET PO ONE (22:00)
[2020-07-02] MEDS ORDERED: POTASSIUM CHLORIDE 20 MEQ TABLET.ER. PO ONE (22:00)
[2020-07-02] MEDS: DIVALPROEX SODIUM 250 MG TABLET.DR. PO SCH (22:21)
[2020-07-03] MEDS ORDERED: METO10TA81 PO (06:02)
[2020-07-03] MEDS ORDERED: TOPI25TA7 PO (06:02)
[2020-07-03] MEDS ORDERED: OLAN15TA3 PO (07:09)
[2020-07-03] MEDS ORDERED: POTA20TA4 PO (07:09)
[2020-07-03] MEDS ORDERED: DIVA250T PO (07:09)
[2020-07-03] MEDS ORDERED: LEVO25TA4 PO (07:09)
[2020-07-03] MEDS ORDERED: METO25TA4 PO (07:09)
[2020-07-03] MEDS ORDERED: FLUO20CA20 PO (07:12)
[2020-07-03] MEDS: DIVALPROEX SODIUM 250 MG TABLET.DR. PO SCH (09:09)
[2020-07-03 17:04] VITALS: BP 146/85
== END 2020-07-03 17:24 ==
LOC: ER 11:47
DX: F06.34 Mood disorder due to known physiological condition with mixed features (principal); F41.9 Anxiety disorder, unspecified; F32.9 Major depressive disorder, single episode, unspecified; I10 Essential (primary) hypertension; F20.9 Schizophrenia, unspecified; Z88.0 Allergy status to penicillin; Z88.2 Allergy status to sulfonamides; Z88.5 Allergy status to narcotic agent; Z88.8 Allergy status to other drugs, medicaments and biological substances; Z91.040 Latex allergy status
CPT/HCPCS: 36415; 80053; 81001; 83540; 83550; 83735; 85025; 85610; 85730; 93005; 99285; J8597